=== PATIENT | male | born 1985 | race Caucasian/White ===

== ENCOUNTER 2019-04-24 01:32 | Emergency (ER) | payer SELFPAY ==
[~2019-04-24] VITALS: Ht 165.1 cm; Wt 89.1 kg
[2019-04-24 01:38] VITALS: Ht 165.1 cm; Wt 89.1 kg
[2019-04-24 03:20] VITALS: BP 137/93
== END 2019-04-24 03:20 | disposition home or self-care (01) ==
LOC: ED 01:32
DX: N34.2 Other urethritis (principal)
CPT/HCPCS: 87491; 87591; J0696